=== PATIENT | female | born 1995 ===

== ENCOUNTER 2018-08-23 02:41 | Emergency (ER) | payer SELFPAY | END 2018-08-23 03:04 | disposition home or self-care (01) | LOC: ERS 02:41 | DX: F10.129 Alcohol abuse with intoxication, unspecified (principal); F98.8 Other specified behavioral and emotional disorders with onset usually occurring in childhood and adolescence; Z79.899 Other long term (current) drug therapy | CPT/HCPCS: 99284 ==